=== PATIENT | male | born 1955 | race African-American/Black ===

== ENCOUNTER → 2017-01-19 | Outpatient (CLI) | payer OTHER ==
[~2017-01-19] MED LIST: CELEBREX 1100 MG/CAP PO; HCTZ 25MG TAB25 MG; LOTREL 5/10MG C1 CAP PO; NEXIUM 40MG40 MG PO; NEXIUM I.V. 40M40 MG PO
== END ==
LOC: COL.RAD 19:56
DX: N50.89 Other specified disorders of the male genital organs (principal); N50.812 Left testicular pain

== ENCOUNTER → 2021-11-01 | Outpatient (CLI) | payer MEDICARE, OTHER | LOC: COL.RAD 08:32 | DX: I67.82 Cerebral ischemia (principal); Q04.8 Other specified congenital malformations of brain; G31.84 Mild cognitive impairment of uncertain or unknown etiology; F95.9 Tic disorder, unspecified | CPT/HCPCS: A9575 ==

== ENCOUNTER → 2022-02-09 | Outpatient (CLI) | payer MEDICARE, OTHER | LOC: COL.RAD 07:16 | DX: N43.3 Hydrocele, unspecified (principal) ==